=== PATIENT | female | born 2000 | race Caucasian/White ===

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

== ENCOUNTER 2018-10-15 10:45 | Emergency (ER) | payer OTHER ==
[~2018-10-15] VITALS: Ht 170.2 cm; Wt 107.2 kg
[~2018-10-15 10:45] MED LIST: ACET500C5 PO; AMOX500C2 PO; HYDR-3498 PO; IBUP-1542 PO; IBUP-1982 PO
[2018-10-15 10:46] VITALS: BP 163/81; PULSE 90; RESP 19; Ht 170.2 cm; Wt 107.2 kg
[2018-10-15] MEDS ORDERED: HYDR-4011 PO (11:20)
--- NOTE | 2018-10-15 11:27 | ERD ---
ER Documentation Chief Complaint Chief Complaint left ear pain HPI 18-year-old female presents with complaint of otitis externa since yesterday. States that she went to another clinic and was prescribed antibiotic drops as well as ibuprofen but the ibuprofen is not relieved her pain. States it is very painful currently 10 out of 10, and is constant. She is requesting a stronger medication. Denies any fevers, headaches, hearing loss. Denies allergies. Denies possibility of . Denies medical problems. ROS All systems reviewed and are negative except as per history of present illness. Medications Home Meds Active Scripts Hydrocodone/Acetaminophen ([place] 5-325 Tablet) 1 Each Tablet, 1-2 TAB PO Q6H PRN for PAIN, #15 TAB Prov:LENI RAMOS 10/15/18 Amoxicillin* (Amoxicillin*) 500 Mg Cap, 500 MG PO TID for 7 Days, CAP Prov:CHATO DALE-C 09/10/17 Acetaminophen* (Tylophen*) 500 Mg Capsule, 1 CAP PO Q6H PRN for PAIN AND OR ELEVATED TEMP, #30 CAP Prov:CHATO DALE-C 09/10/17 Ibuprofen* (Motrin*) 600 Mg Tab, 600 MG PO Q6, #30 TAB Prov:PROCHATO COLLADO-C 09/10/17 Ibuprofen* (Ibuprofen*) 200 Mg Capsule, 400 MG PO Q6, #40 CAP Prov:MECHOSO,DAISY A 06/24/14 Hydrocodone Bit/Acetaminophen (Anexsia 5-325 Mg Tablet) 1 Tab Tab, 2 TAB PO Q4H PRN for PAIN, #30 Prov:MECHOSO,DAISY A 06/24/14 Allergies Allergies: Coded Allergies: No Known Allergies (Verified Allergy, Unknown, 10/16/14) PER MOM, PER PATIENT PMhx/Soc History of Surgery: Yes (CHOLI) Anesthesia Reaction: No Hx Neurological Disorder: No Hx Respiratory Disorders: No Hx Cardiac Disorders: No Hx Psychiatric Problems: No Hx Miscellaneous Medical Probl: No Hx Alcohol Use: No Hx Substance Use: No Hx Tobacco Use: No FmHx Family History: No diabetes, No coronary disease, No other Physical Exam Vitals Vital Signs Date Temp Pulse Resp B/P (MAP) Pulse Ox O2 O2 Flow FiO2 Time Delivery Rate 10/15/18 99.6 90 19 163/81 97 10:46 (108) Physical Exam Const: No acute distress Head: Atraumatic Eyes: Normal Conjunctiva ENT: Normal External Ears, Nose and Mouth. Left ear canal is edematous with exudates. TM is nonerythematous or edematous. Mastoids are nonerythematous edematous or tender to palpation bilaterally Neck: Full range of motion. No meningismus. Resp: Clear to auscultation bilaterally Cardio: Regular rate and rhythm, no murmurs Abd: Soft, non tender, non distended. Normal bowel sounds Skin: No petechiae or rashes Back: No midline or flank tenderness Ext: No cyanosis, or edema Neur: Awake and alert Psych: Normal Mood and Affect Results 24 hrs Current Medications Medications Dose Sig/Sisi Start Time Status Last (Trade) Ordered Route PRN Stop Time Admin Dose Reason Admin 1 tab ONCE ONCE 10/15/18 Acetaminophen PO 11:30 / 10/15/18 11:31 Hydrocodone Bitart ([place] (5)) Procedures/MDM MDM: Patient's presentation is consistent with acute otitis externa. Patient advised to continue on the antibiotics that she was prescribed by her primary care physician yesterday as well as ibuprofen. Patient was given short course of [place] for breakthrough pain as she stated that ibuprofen was not alleviating her pain. I have low suspicion for mastoiditis, malignant malignant otitis externa, TM rupture, or any emergent condition. Patient discharged with strict ER precautions. Patient advised to follow up with PMD. All questions answered at discharge. Departure Diagnosis: Primary Impression: Otitis externa Otitis externa type: unspecified type Chronicity: acute Laterality: right Qualified Codes: H60.501 - Unspecified acute noninfective otitis externa, right ear Condition: Stable Patient Instructions: External Ear Infection (Adult) Referrals: COMMUNITY CLINICS YOU HAVE RECEIVED A MEDICAL SCREENING EXAM AND THE RESULTS INDICATE THAT YOU DO NOT HAVE A CONDITION THAT REQUIRES URGENT TREATMENT IN THE EMERGENCY DEPARTMENT. FURTHER EVALUATION AND TREATMENT OF YOUR CONDITION CAN WAIT UNTIL YOU ARE SEEN IN YOUR DOCTORS OFFICE WITHIN THE NEXT 1-2 DAYS. IT IS YOUR RESPONSIBILITY TO MAKE AN APPOINTMENT FOR FOLOW-UP CARE. IF YOU HAVE A PRIMARY DOCTOR --you should call your primary doctor and schedule an appointment IF YOU DO NOT HAVE A PRIMARY DOCTOR YOU CAN CALL OUR PHYSICIAN REFERRAL HOTLINE AT IF YOU CAN NOT AFFORD TO SEE A PHYSICIAN YOU CAN CHOSE FROM THE FOLLOWING [facility] [id number] [facility] [phone] [facility]. [facility] [address] [facility] [address] [facility]. [facility] [phone] [facility]. [facility]. [address] Additional Instructions: FOLLOW UP WITH YOUR PRIMARY CARE PHYSICIAN TOMORROW.Return to this facility if you are not improving as expected. Do not take [place] if you plan on driving or using any heavy machinery. LENI RAMOS October 15, 2018 11:27
[2018-10-15] MEDS ORDERED: HYDROCODONE/APAP (5/325) TAB PO ONE (11:30)
== END 2018-10-15 12:36 | disposition home or self-care (01) ==
LOC: FTE 10:45
DX: H60.502 Unspecified acute noninfective otitis externa, left ear (principal)
CPT/HCPCS: Z7502; Z7610; 99283